=== PATIENT | male | born 1965 | race Caucasian/White ===

== ENCOUNTER → 2019-11-02 12:24 | Outpatient (CLI) | payer OTHER, SELFPAY ==
--- NOTE | ~2019-11-02 | XR_ITS ---
XR foot RT min 3V DATE: 11/02/2019 12:40 INDICATION: Foot injury, pain TECHNIQUE: 4 views COMPARISON: None FINDINGS: Mild posterior calcaneal enthesopathy. No recent fracture or dislocation, periosteal reaction or bone destruction. IMPRESSION: Mild posterior calcaneal enthesopathy No recent fracture or dislocation Reviewed, dictated and finalized at location A.
== END ==
PROVIDERS: PCP Family Medicine; Visit Provider Physician Assistant
DX: S99.929A Unspecified injury of unspecified foot, initial encounter (principal); M77.31 Calcaneal spur, right foot
CPT/HCPCS: 73630

== ENCOUNTER → 2021-04-10 03:00 | Outpatient (CLI) | payer OTHER, SELFPAY ==
[2021-04-11 06:40] LABS: SARS-CoV-2 RNA PCR Negative
== END ==
PROVIDERS: PCP Family Medicine; Visit Provider Physician Assistant
DX: R09.81 Nasal congestion (principal); Z20.822 Contact with and (suspected) exposure to COVID-19
CPT/HCPCS: C9803; U0003; U0005

== ENCOUNTER 2021-11-04 09:02 | Outpatient (CLI) | payer OTHER, SELFPAY ==
--- NOTE | ~2021-11-04 | NM_ITS ---
EXAMINATION: NM sandy stress w perfusion DATE: 11/04/2021 14:19 INDICATION: Dyspnea on exertion. TECHNIQUE: Rest images were obtained following intravenous administration of 10.3 mCi Tc99m tetrofosm in (Myoview). The patient was infused intravenously with Lexiscan (regadenoson). Then, 29.3 mCi Tc99m tetrofosmin (Myoview) was administered intravenously, and stress images were obtained. Data was diallo nstructed into short axis and horizontal and vertical long axis SPECT images. Gated SPECT images were also obtained. COMPARISON: None. FINDINGS: There is no definite reversible or fixed perfusion abnormality to suggest ischemia or infar ction. There is no segmental wall motion abnormality. Left ventricular ejection fraction measures > 70%. IMPRESSION: 1. No definite ischemia or infarct. 2. Normal left ventricular ejection fraction measuring >70%. Reviewed, dictated and finalized at location A.
--- NOTE | 2021-11-04 11:43 | EST_ITS ---
Patient Info Name: Kemal Burton Age: 55 years : 1965 Gender: Male Ht: 70 in Wt: 370 lbs BSA: 2.97 m2 Exam Date: 11/04/2021 11:49 AM Exam Location: [facility] Stress Patient Status: Outpatient Admit Date: 11/04/2021 Staff Ordering Physician: Kyle Degroot MD Attending Provider: Kyle Degroot MD Exam Type: CA stress sandy w NM Study Info A regadenoson stress test was performed. Summary 1. 1. Negative lexiscan stress test for ischemic ST changes by ECG criteria. 2. 2. Stable hemodynamics throughout the test. 3. 3. Nuclear scan to follow and will be reported separately. Please correlate with it. 4. 4. Patient informed of the above results. Protocol: Lexiscan Stress ECG Details Stage: REST Duration (min): 1 min : 18 sec HR (bpm): 60 SBP (mmHg): 119 DBP (mmHg): 76 Stage: REST Duration (min): 8 min : 57 sec HR (bpm): 64 SBP (mmHg): 119 DBP (mmHg): 76 Stage: STAGE 1 Duration (min): 1 min : 0 sec HR (bpm): 86 SBP (mmHg): 125 DBP (mmHg): 93 Stage: RECOVERY Duration (min): 1 min : 0 sec HR (bpm): 79 SBP (mmHg): 125 DBP (mmHg): 93 Stage: RECOVERY Duration (min): 2 min : 0 sec HR (bpm): 74 SBP (mmHg): 125 DBP (mmHg): 93 Stage: RECOVERY Duration (min): 3 min : 0 sec HR (bpm): 73 SBP (mmHg): 116 DBP (mmHg): 60 Stage: RECOVERY Duration (min): 3 min : 15 sec HR (bpm): 73 SBP (mmHg): 116 DBP (mmHg): 60 Rest HR: 64 bpm Peak HR: 87 bpm Rest Sys BP: 119 mmHg Peak Sys BP: 125 mmHg Max Pred HR: 164 bpm % Max Pred HR: 53 % Target HR: 139 bpm Max RPP: 10,875 bpm*mmHg Termination Reason: Completed protocol Cardiac Symptoms: Shortness of breath Total Time: 1 min : 0 sec Rest Hastings BP: 76 mmHg Peak Hastings BP: 93 mmHg Total Dose: 0.4 mg Resting ECG Sinus rhythm, IRBBB. Stress ECG No ST changes. Arrhythmias None. Report Signatures
--- NOTE | 2021-11-04 13:30 | WPDPFTINT ---
PFT Procedure Performed PFT Procedure Performed Plethysmography (Lung Vol) Diffusing Cap (DLCO) Flow Vol Loop Spirometry w/o Bronchodil PFT Interpretation Lung volumes were measured with the body plethysmography method. The diminished expiratory reserve volume is related to obesity. The remaining lung volumes are unremarkable. Spirometry showed borderline FEV1 but normal FEV1 to FVC ratio 72% and normal FVC. No post bronchodilator study was carried out. Lung diffusion capacity is within the normal range. The flow volume loop is unremarkable. The borderline low FEV1 in the face of normal forced vital capacity, FEV1 to FVC ratio, and total lung capacity is indicative of nonspecific pattern. If mild obstructive airway disease is considered likely based on clinical grounds, repeat spirometry with post bronchodilator measurement. impression: Non specific pulmonary function test pattern. Consider repeat spirometry with post bronchodilator measurement, if clinically indicated.
== END 2021-11-04 09:03 | disposition home or self-care (01) ==
PROVIDERS: PCP Family Medicine; Visit Provider Family Medicine
DX: R06.02 Shortness of breath (principal); I51.7 Cardiomegaly; R94.2 Abnormal results of pulmonary function studies
CPT/HCPCS: 78452; 93017; 94375; 94726; 94729; A9502; J2785

== ENCOUNTER 2024-10-23 07:41 | Outpatient (CLI) | payer OTHER, SELFPAY ==
--- OUTSIDE RECORDS SUMMARY | 2024-10-23 07:45 | XMS_ITS | Encounter Summary ---
Author Organization [facility] Address [address] [place] [address] Care Team Providers Care Spacecraft Systems Engineer Name Role Phone Unavailable Primary Care Provider Unavailabl e Encounter Details Date Type Department Care Team (Late st Contact Info) Description 09/26/2023 Lab Requisition [facility] - DermPath Lab [address] [place] [address] Carmelina Bailey MD [address] [facility] [address] [place] [address] Social History Tobacco Use Types Packs/Day Years Used Date Smoking Tobacco: Never Assessed Sex and Gender Information Value Date Recorded Sex Assigned at Not on file Gender Identity Not on file Sexual Orientation Not on file documented as of this encounter Plan of Treatment Not on file documented as of this encounter Procedures Procedure Name Priority Date/Time Associated Diagnosis Comments DERMATOPATHOLOGY Routine 09/26/2023 11:1 4 AM SALES ENGINEER documented in this encounter Results * DERMATOPATHOLOGY (09/26/2023 11:14 AM SALES ENGINEER) Case Report Dermatopathology Report Case: [id number] Authorizing Provider: Carmelina Bailey MD Collected: 09/26/2023 11:14 AM Ordering Location: [facility] D[facility] Lab Received: 09/27/2023 09:22 AM Pathologist: Irina Vazquez MD Specimen: Skin, right scalp 4 1:45 PM SALES ENGINEER DERMATOPATHOLOGY LABORATORY Final Diagnosis Specimen A. SKIN, right scalp: BASAL CELL CARCINOMA, PIGMENTED (C44.41) POST-INFLAMMATORY PIGMENT ALTERATION (L81.9) 4 1:45 PM SALES ENGINEER DERMATOPATHOLOGY LABORATORY Clinical History Partial sample, R/O BCC, R/O MM, R/O SK, Irregular Border, Irregular Color Brown Plaque 1:45 PM [facility] DERMATOPATHOLOGY LABORATORY Gross Description Specimen A: Received is one formalin filled container labeled with the patient's name and designated right scalp. The specimen consists of a shave biopsy measuring 9x5x1 mm. Jar 0. 1:45 PM [facility] DERMATOPATHOLOGY LABORATORY Microscopic Description Specimen A. SKIN, right scalp: There are aggregates of basaloid cells with a high nuclear to cytoplasmic ratio and peripheral palisading. There is abundant melanin. There is also melanin within melanophages around the superficial vascular plexus. 1:45 PM [facility] DERMATOPATHOLOGY LABORATORY Disclaimer An external and internal positive and negative controls are appropriate for the histochemical, immunohistochemical and immunofluorescence stain(s) in this case (if any), except where stated explicitly. The performance characteristics of the stain(s) cited in this report were developed and its performance characteristic determined by the Dermatopathology Laboratory at [facility], directed by Dr. Lucien Cuevas. These tests need not be, and therefore are not, approved by the [place] Food and Drug Administration. The tests are used for clinical purposes. Billing Codes Specimen Charges Stain Charges 02545 1 1:45 PM [facility] DERMATOPATHOLOGY LABORATORY Embedded Images 1:45 PM [facility] DERMATOPATHOLOGY LABORATORY Pathology/Cytolo gy TISSUE SPECIMEN FROM SKIN / Unknown 09/26/2023 11:14 AM SALES ENGINEER 09/27/2023 9:22 AM SALES ENGINEER Carmelina Bailey MD LAB - PATHOLOGY/CYTO LOGY ORDERABLES DERMATOPATHOLOGY LABORATORY [facility] - Department of Dermatology [address], [address] [phone] documented in this encounter Visit Diagnoses Not on filedocumented in this encounter
--- OUTSIDE RECORDS SUMMARY | 2024-10-23 07:45 | XMS_ITS | Clinical Summary ---
Author Organization [facility] Address [address] [place] [address] Care Team Providers Care Equipment Hire Manager Name Role Phone Unavailable Primary Care Provider Unavailabl e Source Comments [facility],non-owned Affiliates and Associated Physician Practices is amultiple site organization consisting of ambulatory clinics and hospital sitesin [place], [place], [place] and [place]. This disclosure is being madepursuant to the Care Everywhere program and may not contain all information available regarding this patient. Last updated 18.[facility] Social History Tobacco Use Types Packs/Day Years Used Date Smoking Tobacco: Never Assessed Sex and Gender Information Value Date Recorded Sex Assigned at Not on file Gender Identity Not on file Sexual Orientation Not on file Plan of Treatment Health Maintenance Due Date Last Done Comments COLOGUARD (AGES 45-75) - COL ON CA SCREENING 1965 COLON MONITORING 1965 COLONOSCOPY - COLON CA SCREENING 1965 CT COLONOGRAPHY - COLON CA SCREENING 1965 Colorectal Cancer Screening 1965 FIT - COLON CA SCREENING 1965 FLEX SIG - COLON CA SCREENING 1965 LIPID TESTING 1965 HIV SCREENING 12/28/1979 HEPATITIS C SCREENING 12/23/1982 DTAP/TDAP/TD VACCINES (1 - Tdap) 12/28/1983 HEPATITIS B VACCINE (1 of 3 - 19+ 3-dose series) 12/28/1983 PNEUMOCOCCAL VACCINE 50+ (1 of 1 - PCV) 2014 ZOSTER VACCINE (1 of 2) 2014 COVID-19 VACCINE ( - 2023-2 5 season) 2024 INFLUENZA VACCINE (#1) 2024 DEPRESSION SCREENING 08/22/2024 HIB VACCINE Aged Out No longer eligi ble based on patient's age to complete this topic HPV VACCINE Aged Out No longer eligi ble based on patient's age to complete this topic MENINGOCOCCAL (Group B) VACCINE Aged Out No longer eligible based on patient's age to complete this topic MENINGOCOCCAL VACCINE Aged Out No aroldo rehan eligible based on patient's age to complete this topic PNEUMOCOCCAL VACCINE Aged Out No long er eligible based on patient's age to complete this topic
--- OUTSIDE RECORDS SUMMARY | 2024-10-23 07:45 | XMS_ITS | Referral Summary ---
Author Organization [facility] Address [address] [place] [address] Care Team Providers Care Electric Locomotive Firer/Fireman Name Role Phone Unavailable Primary Care Provider Unavailabl e Source Comments [facility],non-owned Affiliates and Associated Physician Practices is amultiple site organization consisting of ambulatory clinics and hospital sitesin [place], [place], [place] and [place]. This disclosure is being madepursuant to the Care Everywhere program and may not contain all information available regarding this patient. Last updated 18.[facility] Social History Tobacco Use Types Packs/Day Years Used Date Smoking Tobacco: Never Assessed Sex and Gender Information Value Date Recorded Sex Assigned at Not on file Gender Identity Not on file Sexual Orientation Not on file Plan of Treatment Not on file
--- OUTSIDE RECORDS SUMMARY | 2024-10-23 07:45 | XMS_ITS | Clinical Summary ---
Author Organization [facility] Address [address] [place] [address] Care Team Providers Care Ventilating Equipment Installer Name Role Phone Unavailable Primary Care Provider Unavailabl e Social History Tobacco Use Types Packs/Day Years Used Date Smoking Tobacco: Never Assessed Sex and Gender Information Value Date Recorded Sex Assigned at Not on file Legal Sex Male 9:29 AM DRIVER MEDIC Gender Identity Not on file Sexual Orientation Not on file Plan of Treatment Health Maintenance Due Date Last Done Comments Hepatitis C Virus (HCV) Screening 1965 TdaP Immunization 1965 Hepatitis B Immunization (1 of 3 - 19+ 3-dose series) 12/28/1983 Colonoscopy 2009 Colorectal Cancer Screening 2009 Cologuard 2014 Immunochemical Fecal Occult Blood 2014 Pneumococcal Immunization (5 0+ years) (1 of 1 - PCV) 2014 Zoster Immunization (1 of 2) 2014 PSA Discussion 12/28/2019 Influenza Immunization (#1) 04/22/202407/22, 06/07/2020 SARS-COV-2 Immunization ( season) 2024 11/10/2020, 10/20/2020 Respiratory Syncytial Virus (RSV) Immunization (Adult) (1 - 1-dose 75+ series) 12/28/2039 Meningococcal Immunization (ACWY) Aged Out No longer eligible b ased on patient's age to complete this topic Pneumococcal Immunization Combined Aged Out No longer eligible b ased on patient's age to complete this topic Rotavirus Immunization Aged Out No lo nger eligible based on patient's age to complete this topic Insurance [employer] on file
--- OUTSIDE RECORDS SUMMARY | 2024-10-23 07:45 | XMS_ITS | Patient Health Summary ---
Author Organization [facility] Address [address] [place] [address] Care Team Providers Care Hand Paint Mixer Name Role Phone Unavailable Primary Care Provider Unavailabl e Note from [facility],non-owned Affiliates and Associated Physician Practices is amultiple site organization consisting of ambulatory clinics and hospital sitesin [place], [place], [place] and [place]. This disclosure is being madepursuant to the Care Everywhere program and may not contain all information available regarding this patient. Last updated 18.[facility] Social History Tobacco Use Types Packs/Day Years Used Date Smoking Tobacco: Never Assessed Sex and Gender Information Value Date Recorded Sex Assigned at Not on file Gender Identity Not on file Sexual Orientation Not on file Procedures * DERMATOPATHOLOGY(Performed 09/26/2023) Results * DERMATOPATHOLOGY (09/26/2023 11:14 AM ORTHODONTIC TECHNICIAN ASSISTANT) Case Report Dermatopathology Report Case: [id number] Authorizing Provider: Carmelina Bailey MD Collected: 09/26/2023 11:14 AM Ordering Location: [facility] DermPath Lab Received: 09/27/2023 09:22 AM Pathologist: Irina Vazquez MD Specimen: Skin, right scalp 4 1:45 PM [facility] DERMATOPATHOLOGY LABORATORY Final Diagnosis Specimen A. SKIN, right scalp: BASAL CELL CARCINOMA, PIGMENTED (C44.41) POST-INFLAMMATORY PIGMENT ALTERATION (L81.9) 4 1:45 PM ORTHODONTIC TECHNICIAN ASSISTANT DERMATOPATHOLOGY LABORATORY Clinical History Partial sample, R/O BCC, R/O MM, R/O SK, Irregular Border, Irregular Color Brown Plaque 4 1:45 PM [facility] DERMATOPATHOLOGY LABORATORY Gross Description Specimen A: Received is one formalin filled container labeled with the patient's name and designated right scalp. The specimen consists of a shave biopsy measuring 9x5x1 mm. Jar 0. 4 1:45 PM [facility] DERMATOPATHOLOGY LABORATORY Microscopic Description Specimen A. SKIN, right scalp: There are aggregates of basaloid cells with a high nuclear to cytoplasmic ratio and peripheral palisading. There is abundant melanin. There is also melanin within melanophages around the superficial vascular plexus. 4 1:45 PM [facility] DERMATOPATHOLOGY LABORATORY Disclaimer An external and internal positive and negative controls are appropriate for the histochemical, immunohistochemical and immunofluorescence stain(s) in this case (if any), except where stated explicitly. The performance characteristics of the stain(s) cited in this report were developed and its performance characteristic determined by the Dermatopathology Laboratory at [facility], directed by Dr. Lucien Cuevas. These tests need not be, and therefore are not, approved by the [place] Food and Drug Administration. The tests are used for clinical purposes. Billing Codes Specimen Charges Stain Charges 80917 1 4 1:45 PM [facility] DERMATOPATHOLOGY LABORATORY Embedded Images 4 1:45 PM [facility] DERMATOPATHOLOGY LABORATORY Pathology/Cytolo gy TISSUE SPECIMEN FROM SKIN / Unknown 09/26/2023 11:14 AM ORTHODONTIC TECHNICIAN ASSISTANT 09/27/2023 9:22 AM [facility] Carmelina Bailey MD LAB - PATHOLOGY/CYTO LOGY ORDERABLES DERMATOPATHOLOGY LABORATORY [facility] - Department of Dermatology [address] [phone]
[2024-11-13 15:43] VITALS: BMI 53.6
--- NOTE | 2024-11-13 15:43 | P.SLEEP_ITS ---
Sleep Study Date of Study: 10/23/24 Ordering Provider: Montse Pink DO Interpreting Physician: Montse Pink DO Sleep Study Type: CPAP Titration Height: 1.78 m Weight: 169.644 kg Body Mass Index: 53.6 Neck Circumference (inches): 22 [place]: 8 Reason for Sleep Study Previously diagnosed MIRELAL in 2004. Bought an AutoPAP 4-20 cm H2O out of pocket. Current machine is getting loud. Compliance data shows residual AHI <5 on 4-20 cm H2O. Sleep History The patient is a 58-year-old male with previously diagnosed sleep apnea that a sleep study ordered by his primary care physician to get new equipment. The p atient denies awakening from sleep short of breath. He occasionally awakens at night with heartburn, belching or cough. He denies snoring with CPAP. He denies waking up gasping for air throughout the night. He denies sweating excessively at night. He rarely has heart palpitations or irregular heartbeats during the night. He occasionally falls asleep during the day but never while driving. He denies sleep paralysis, cataplexy and hypnagogic/ hypnopompic hallucinations. He denies having trouble at school or work due to sleepiness. He denies feeling afraid of going to sleep. He denies having nightmares. He occasionally remembers his dreams. He occasionally has thoughts racing through his mind. He rarely feels sad or depressed. He occasionally has anxiety. He occasionally has muscular tension. He rarely notices parts of his body jerk. He denies kicking during the night. He denies having crawling and aching feelings in his legs but rarely has leg pain during the night. He denies grinding his teeth during sleep and denies awakening with morning jaw pain. He denies being bothered by pain during the day and is rarely awakened by pain during the night. He denies waking up feeling stiff in the morning. He denies waking up with sore or achy muscles. He denies waking up with pain in the neck, spine and other joints. He goes to bed at 9:00 p.m. on weekdays and between 9-10 p.m. on the weekends. It takes him 10-15 minutes to fall asleep. He wakes up 1-2 times throughout the night for unknown reasons and is able to fall back asleep quickly. He wakes up between 6-6:30 a.m. on both weekdays and weekends. He typically gets 8-9 hours of sleep per night. He will stay in bed for 5 minutes after waking up in the morning. He currently lives with his . He denies consuming any caffeinated beverages within 2 hours of bedtime. He denies engaging in physical exercise before bedtime. He will watch television before falling asleep. He denies taking naps in afternoon or the evening. He consumes 2 caffeinated beverages per day. He denies tobacco, alcohol and recreational drug use. [facility] Past Medical History Medical History Anxiety Surgical History Surgical History Total knee replacement status Right Sep 2022, left Jun 13 Family History Family History Mother , CVA in 20s No problems noted. Father , [place] in 50s No problems noted. Social History Social History Smoking status: Never smoker Second hand tobacco smoke exposure: No Alcohol intake: current Alcohol use details: Occasional Substance use: never Substance use type: does not use Lack of Transportation: No Lack of Food: Never True Current Housing: I Have Housing Concerned About Future Housing: No Difficulty Paying Gas/Electric Bills: No Difficulty Paying for Meds: No Currently Unemployed: No Education: Bachelor's Degree Difficulty w/ Childcare or Family Care: No Medications Home Medications ?Medication ?Instructions ?Recorded ?Confirmed ?Type ascorbic acid (vitamin C) 250 mg 250 mg PO DAILY 04/04/24 04/04/24 History tablet cholecalciferol (vitamin D3) 25 25 mcg PO DAILY 04/04/24 04/04/24 History mcg (1,000 unit) capsule escitalopram oxalate 20 mg tablet 20 mg PO DAILY #90 tabs 04/04/24 04/04/24 Rx lactobacillus combination no.9 4 4,000 mmu cells PO DAILY 04/04/24 04/04/24 History billion cell capsule (Adult 50 Plus Probiotic) mecobalamin (vitamin B12) 1,000 1,000 mcg PO DAILY 04/04/24 04/04/24 History mcg chewable tablet triamcinolone acetonide 0.1 % 1 applic topical BID #80 grams 04/04/24 04/04/24 Rx topical ointment eszopiclone 3 mg tablet (Lunesta) 3 mg PO QHS #1 tablet 09/17/24 09/17/24 Rx Sleep Procedure A full night CPAP Titration using the [employer] multi-channel system recorded the standard physiologic parameters including EEG, EOG, submentalis EMG, anterior tibialis EMG, EKG, body position, nasal and oral airflow using nasal pressure sensor and thermistor.? Respiratory parameters of chest and abdominal movements were recorded with Respiratory Inductance Plethysmography belts. Oxygen saturation was recorded by pulse oximetry. Video monitoring was also performed. Sleep stages, periodic limb movements, and EEG arousals were scored in 30 second epochs according to the criteria of the AASM Scoring Manual. The Apnea-Hypopnea Index was calculated using CMS guidelines for definition of hypopnea with 4% O2 desaturations while scoring respiratory events. Sleep Architecture The total recording time was 464.1 minutes.? The total sleep time was 351.0 minutes. Sleep latency was 44.5 minutes. REM latency was 199.5 minutes. Sleep efficiency was 75.6%. The patient had 35 awakenings for an awakening index of 6.0. Wake after Sleep Onset time was 69.0 minutes. The patient spent 29.0 minutes, 8.3% of total sleep time in Stage N1. The patient spent 230.0 minutes, 65.5% in Stage N2. The patient spent 0.5 minutes, 0.1% in Stage N3. The patient spent 91.5 minutes, 26.1% in Stage REM. Respiratory Analysis The patient had 15 hypopneas, 2 obstructive apneas and 1 central apnea for an overall Apnea Hypopnea Index of 3.1 events per hour. The REM Apnea Hypopnea Index was 1.3. The NREM Apnea Hypopnea Index was 3.7. The patient had a Central Apnea Hypopnea Index of 0.2. There was no evidence of Sesar-Suazo Respirations. The patient was started on CPAP 5 cm H2O and titrated to CPAP 15 cm H2O due to hypopneas. The patient was able to fall asleep starting on CPAP 5 cm H2O. The patient was able to achieve REM sleep starting on CPAP 13 cm H2O. The patient was able to achieve a residual AHI less than 5 with both NREM and REM sleep in the supine position on the final 3 pressure settings. On CPAP 13 cm H2O, the patient spent 59.5 minutes in NREM and 4.5 minutes in REM with no respiratory events, resulting in an AHI of 0. On CPAP 14 cm H2O, the patient spent 53.5 minutes in NREM and 13.5 minutes in REM with 2 hypopneas, resulting in an AHI of 1.8. On CPAP 15 cm H2O, the patient spent 13 minutes in NREM and 73.5 minutes in REM with 1 central apnea and 2 hypopneas, resulting in an AHI of 2.1. The patient had a sleep efficiency of 93.4% on 13 cm , 100% on 14 cm and 92% on 15 cm H2O. Arousals There were 140 total arousals for an arousal index of 23.9. There were 60 spontaneous arousals for an index of 10.3. ?There were 11 arousals due to respiratory events for an index of 1.9. There were 48 arousals due to periodic limb movements for an index of 8.2.? There were 23 arousals due to isolated limb movements for an index of 3.9. Periodic Limb Movements The patient had 46 isolated limb movements with an index of 7.9. The patient had 134 periodic limb movements with index of 22.9, which is elevated (normal < 15). Patient had a total of 180 limb movements with a total limb movement index of 30.8. Oximetry Data The patient had an average oxygen saturation of 93.4% in sleep with a minimum oxygen saturation of 88.0% and a maximum oxygen saturation of 97.0%. The patient had 18 oxygen desaturations that were 4% or greater resulting in an Oxygen Desaturation Index of 3.1.? The patient spent 0.2 minutes of total sleep time with an oxygen saturation below 88%. Snoring Profile Moderate snoring was present in the beginning of the study. The snoring resolved once the patient was titrated to 13 cm H2O. Cardiac Profile The EKG showed normal sinus rhythm. No arrhythmias or premature beats were seen. The patient had an average pulse rate of 56.7 bpm with a minimum pulse rate of 45.0 bpm and a maximum pulse rate of 74.0 bpm. ? EEG Profile No signs of seizure activity seen. Assessment and Plan Assessment and Plan (1) MIRELLA on CPAP: Code(s): G47.33 - Obstructive sleep apnea (adult) (pediatric); Z99.89 - Dependence on other enabling machines and devices Status: Acute Assessment and Plan: The patient was started on CPAP 5 cm H2O and titrated to CPAP 15 cm H2O due to hypopneas. The patient's sleep apnea resolved on multiple pressure settings. I recommend that the patient be prescribed Resmed CPAP 14 cm H2O, size medium Resmed AirFit P30i nasal pillows, CPAP filters/tubing and heated humidity. This should be used with all episodes of sleep.? Compliance should be reviewed within 31-90 days of starting therapy for usage greater than 4 hours per night greater than 70% of the nights. The patient should be asked about symptoms such as?excessive daytime sleepiness, quality of sleep, decreased nocturia, increased?mental functioning such as memory, mood, and concentration. While the patient did have a significant amount of periodic limb movements present during the study, the frequency dropped significantly once the patient was titrated to the optimal pressure setting. Data The data obtained during this sleep study is adequate for interpretation. Certification This sleep study has been reviewed by a board certified sleep medicine physician.
== END 2024-10-24 07:06 | disposition home or self-care (01) ==
LOC: ANHCSM 07:42
PROVIDERS: PCP Family Medicine; Visit Provider Family Medicine
DX: G47.33 Obstructive sleep apnea (adult) (pediatric) (principal); Z99.89 Dependence on other enabling machines and devices
CPT/HCPCS: 95811

== ENCOUNTER 2025-06-07 00:24 | Day surgery (SDC) | payer OTHER, SELFPAY ==
[2025-05-29 13:33] VITALS: BMI 49.9
--- OUTSIDE RECORDS SUMMARY | 2025-06-07 00:27 | XMS_ITS | Clinical Summary ---
Author Organization [facility] Address [address] [place] [address] Care Team Providers Care Slitting And Shipping Supervisor Name Role Phone Unavailable Primary Care Provider Unavailabl e Source Comments [facility] Offline Media,non-owned Affiliates and Associated Physician Practices is amultiple site organization consisting of ambulatory clinics and hospital sitesin [place], [place], [place] and [place]. This disclosure is being madepursuant to the Care Everywhere program and may not contain all information available regarding this patient. Last updated 18.[facility] Social History Tobacco Use Types Packs/Day Years Used Date Smoking Tobacco: Never Assessed Sex and Gender Information Value Date Recorded Sex Assigned at Not on file Legal Sex Male 11:30 AM RN TRANSITION Gender Identity Not on file Sexual Orientation [...] 12/23/1982 DTAP/TDAP/TD VACCINES (1 - Tdap) 12/28/1983 PNEUMOCOCCAL VACCINE 50+ (1 of 1 - PCV) 2014 ZOSTER VACCINE (1 of 2) 2014 DEPRESSION SCREENING 08/22/2024 COVID-19 VACCINE ( - 2023-2 5 season) 2025 INFLUENZA VACCINE (#1) 2025 Respiratory Syncytial Virus (RSV) Vaccine Pt: or over 60 yrs (1 - 1-dose 75+ series) 12/28/2039 HEPATITIS B VACCINE Aged Out No longe r eligible based on patient's age to complete this topic HIB VACCINE Aged Out No longer eligi ble based on patient's age to complete this topic HPV VACCINE Aged Out No longer eligi ble based on patient's age to complete this topic MENINGOCOCCAL (Group B) VACC INE SHARED DECISION-MAKING Aged Out No longer eligibl e based on patient's age to complete this topic MENINGOCOCCAL GROUPS A/C/Y/W VACCINE Aged Out No longer eligible b ased on patient's age to complete this topic Insurance [employer]
--- OUTSIDE RECORDS SUMMARY | 2025-06-07 00:27 | XMS_ITS | Encounter Summary ---
Author Organization [facility] Address [address] [place] [address] Care Team Providers Care Tire Builder Heavy Service Name Role Phone Unavailable Primary Care Provider Unavailabl e Encounter Details Date Type Department Care Team (Late st Contact Info) Description 09/26/2023 Lab Requisition [facility] - Derm[facility] Lab [address] [place] [address] Carmelina Bailey MD [address] [address] [place] [address] Social History Tobacco Use Types Packs/Day Years Used Date Smoking Tobacco: Never Assessed Sex and Gender Information Value Date Recorded Sex Assigned at Not on file Legal Sex Male 11:30 AM TONGUE BINDER Gender Identity Not on file Sexual Orientation Not on file documented as of this encounter Plan of Treatment Not on file documented as of this encounter Procedures Procedure Name Priority Date/Time Associated Diagnosis Comments DERMATOPATHOLOGY Routine 09/26/2023 11:1 4 AM TONGUE BINDER documented in this encounter Results * DERMATOPATHOLOGY (09/26/2023 11:14 AM TONGUE BINDER) Case Report Dermatopathology Report Case: [id number] Authorizing Provider: Carmelina Bailey MD Collected: 09/26/2023 11:14 AM Ordering Location: [facility] Received: 09/27/2023 09:22 AM Pathologist: Irina Vazquez MD Specimen: Skin, right scalp 1:45 PM TONGUE BINDER DERMATOPATHOLOGY LABORATORY Final Diagnosis Specimen A. SKIN, right scalp: BASAL CELL CARCINOMA, PIGMENTED (C44.41) POST-INFLAMMATORY PIGMENT ALTERATION (L81.9) 1:45 PM TONGUE BINDER DERMATOPATHOLOGY LABORATORY at [address] TONGUE BINDER Clinical History Partial sample, R/O BCC, R/O MM, R/O SK, Irregular Border, Irregular Color Brown Plaque 1:45 PM [facility] DERMATOPATHOLOGY LABORATORY Gross Description Specimen A: Received is one formalin filled container labeled with the patient's name and designated right scalp. The specimen consists of a shave biopsy measuring 9x5x1 mm. Jar 0. 1:45 PM [facility] DERMATOPATHOLOGY LABORATORY Microscopic Description Specimen A. SKIN, right scalp: There are aggregates of basaloid cells with a high nuclear to cytoplasmic ratio and peripheral palisading. There is abundant melanin. There is also melanin within melanophages around the superficial vascular plexus. 4 1:45 PM [facility] DERMATOPATHOLOGY LABORATORY Disclaimer An external and internal positive and negative controls are appropriate for the histochemical, immunohistochemical and immunofluorescence stain(s) in this case (if any), except where stated explicitly. The performance characteristics of the stain(s) cited in this report were developed and its performance characteristic determined by the Dermatopathology Laboratory at [facility], directed by Dr. Lucien Cuevas. These tests need not be, and therefore are not, approved by the [place] Food and Drug Administration. The tests are used for clinical purposes. Billing Codes Specimen Charges Stain Charges 52721 1 4 1:45 PM [facility] DERMATOPATHOLOGY LABORATORY Embedded Images 1:45 PM [facility] DERMATOPATHOLOGY LABORATORY Pathology/Cytolo gy TISSUE SPECIMEN FROM SKIN / Unknown 09/26/2023 11:14 AM TONGUE BINDER 09/27/2023 9:22 AM [facility] us Carmelina Bailey MD LAB - PATHOLOGY/CYTOLOGY ORD ERABLES Final Result DERMATOPATHOLOGY LABORATORY [facility] - Department of Dermatology [address] [phone] documented in this encounter Visit Diagnoses Not on filedocumented in this encounter
--- OUTSIDE RECORDS SUMMARY | 2025-06-07 00:27 | XMS_ITS | Clinical Summary ---
Author Organization Address [address] [place] [address] Care Team Providers Care Ship Harbor Pilot Name Role Phone Unavailable Primary Care Provider Unavailabl e Social History Tobacco Use Types Packs/Day Years Used Date Smoking Tobacco: Never Assessed Sex and Gender Information Value Date Recorded Sex Assigned at Not on file Legal Sex Male 9:29 AM DIRECTOR [facility] Gender Identity Not on file Sexual Orientation Not on file Plan of Treatment Health Maintenance Due Date Last Done Comments Hepatitis C Virus (HCV) Screening 1965 TdaP Immunization 1964 Cologuard 2009 Colonoscopy 2009 Colorectal Cancer Screening 2009 Immunochemical Fecal Occult Blood 2009 Pneumococcal Immunization (5 0+ years) (1 of 1 - PCV) 2014 Zoster Immunization (1 of 2) 2014 Influenza Immunization (#1) 2025 1211/2020, 06/07/2020 SARS-COV-2 Immunization ( season) 2025 11/10/2020, 10/20/2020 Respiratory Syncytial Virus (RSV) Immunization (Adult) (1 - 1-dose 75+ series) 12/28/2039 Hepatitis B Immunization Aged Out No longer eligible based on patient's age to complete this topic Human Papillomavirus (HPV) Immunization Aged Out No longer eligible b ased on patient's age to complete this topic Meningococcal Immunization (ACWY) Aged Out No longer eligible b ased on patient's age to complete this topic Rotavirus Immunization Aged Out No lo nger eligible based on patient's age to complete this topic Insurance [employer] on file
--- OUTSIDE RECORDS SUMMARY | 2025-06-07 00:27 | XMS_ITS | Encounter Summary ---
Author Organization [facility] Address [address] [place] [address] Care Team Providers Care Supply Chain Associate Name Role Phone Maynor Starkey MD Primary Care Provider [phone] Encounter Details Date Type Department Care Team (Late st Contact Info) Description 02/26/2025 MyChart Message Enc [facility] [address] [place] [phone] Maynor Starkey MD [address] [place], [place] [phone] October Social History Tobacco Use Types Packs/Day Years Used Date Smoking Tobacco: Never Smokeless Tobacco: Never Alcohol Use Standard Drinks/Week Comments Not Currently 1.7 (1 standard drink = 0.6 oz p ure alcohol) PHQ-2 Answer Date Recorded Patient Health Questionnaire-2 Score 0 01/29/2025 Sex and Gender Information Value Date Recorded Sex Assigned at Male 01/15/2025 4:23 PM CDT Legal Sex Male 1:37 PM CDT Gender Identity Male 01/15/2025 4:23 PM CDT Sexual Orientation Straight 01/15/2025 4: 23 PM CDT documented as of this encounter Progress Notes * Maynor Starkey MD - 02/26/2025 11:22 AM CDT Can we please arrange for CPAP machiine, already has one and needs a replacement. documented in this encounter Plan of Treatment Upcoming Encounters Date Type Department Care Team (Late st Contact Info) Description 06/19/2025 7:20 AM CDT Laboratory Only [facility] [address] [address] Maynor Starkey MD [address] [place] [phone] 07/30/2025 8:20 AM COLLECTIONS DIRECTOR Office Visit [facility] [address] [phone] Maynor Starkey MD [address] [place] [phone] documented as of this encounter Visit Diagnoses Not on filedocumented in this encounter Care Teams Supply Chain Associate Relationship Specialty Start Date End Date Maynor Starkey MD [address] [place] [phone] PCP - General 01/26/25 documented as of this encounter
--- OUTSIDE RECORDS SUMMARY | 2025-06-07 00:28 | XMS_ITS | Clinical Summary ---
Author Organization [facility] Address Formerly [facility] [address] Care Team Providers Care Shipping Lead Person Name Role Phone Maynor Starkey MD Primary Care Provider [phone] Allergies Active Allergy Reactions Criticality Noted Date Comments Erythromycin Nausea Only Low 02/26/2025 Penicillins Other (see comment) 02/26/2025 Unknown reaction - noted from childhood Tape Rash Low 02/26/2025 Vilazodone Hcl Diarrhea Low 02/26/2025 Medications Probiotic Product (PROBIOTIC 10 ULTRA STRENGTH OR) Take 1 capsule by mouth daily. Active NON FORMULARY Neuro - Mag supplement, one capsule daily Active B Complex Cap capsule Take 1 capsule by mouth daily. Active VITAMIN K, PHYTONADIONE, OR Take 2,600 mcg by mouth daily. Active vitamin D3, cholecalcifero l, 125 mcg capsule Take 1 capsule (125 mcg total) by mouth daily. Active vitamin C (ASCORBIC ACID) 250 MG tablet Take 1 tablet (250 mg total) by mouth daily. Active escitalopram (LEXAPRO) 20 MG tabletIndicati ons:Anxiety TAKE 1 TABLET BY MOUTH EVERY DAY 90 tablet 5 Active tirzepatide (MOUNJARO) 10 MG/0.5ML injectionIndic ations:Diabete s Mellitus Inject 1 Pen into the skin every 7 days. Indications: Diabetes 2 mL 3 5 Active tirzepatide (MOUNJARO) 7.5 MG/0.5ML injectionIndic ations:Diabete s Mellitus Inject 7.5 mg into the skin every 7 days. Indications: Diabetes 2 mL 08 025 Discontinued Active Problems Problem Noted Date Diagnosed Date Obstructive sleep apnea 02/26/2025 Anxiety 01/29/2025 Encounters Date Type Department Care Team Description 05/23/2025 3:00 PM CDT Office Visit [facility] Internal [address] [address] Maynor Starkey MD Follow Up; Obstructive Sleep Apnea ; Obesity (Zepbound f/u) 05/23/2025 Travel 04/23/2025 9:20 AM CDT Office Visit [address] [address] Maynor Starkey MD Follow Up; Obesity (F/u mounjaro) 04/23/2025 Travel 04/10/2025 Results Follow-Up [address] [address] Maynor Starkey MD CBC W/DIFF AUTOMATED 04/10/2025 MyChart Message Enc [address] [address] Maynor Starkey MD Colonoscopy Scheduling 04/09/2025 8:20 AM CDT Office Visit [address] [address] Maynor Starkey MD Blood In Stool (Pt c/o blood in stool intermittent for the last few months, this week he has had blood in stool for almost every BM. ) 04/09/2025 Travel 04/06/2025 MyChart Message Enc [address] [address] Maynor Starkey MD Bleeding from rectum 04/04/[address] [address] Maynor Starkey MD Prior Authorization (Zepbound 7.5 mg / Mounjaro 7.5mg ) 04/02/2025 MyChart Message Enc [facility] Internal [address] [address] Cielo Zendejas, DO Zepbound Prescription 04/01/2025 9:00 AM CDT Office Visit [facility] Internal [address] [address] Maynor Starkey MD Clardy, Emma C, DO Weight Problem (Pt is here today for 1 month f/u for Zepbound. No concerns/questions. States he is ready for the dosage to be moved up to the next amount.) 04/01/2025 Travel 03/13/2025 Results Follow-Up [facility] Internal [address] [address] Maynor Starkey MD COMPREHENSIVE METABOLIC PANEL 03/11/2025 7:20 AM CDT Laboratory Only [facility] Internal [address] [address] Maynor Starkey MD 03/11/2025 Scan [facility] SRVCS Scanned, [facility] 03/11/2025 Travel from Last 3 Months Family History Medical History Relation Comments Stroke Brother Associated with Brain Aneurysm Cancer Father Diabetes Father Heart Disease Father Hypertension Father Heart Disease Mother Valve Replacemen t and Stroke Stroke Mother Depression Sister Relation Status Comments Brother Alive Father Alive Mother Alive Sister Alive Social History Tobacco Use Types Packs/Day Years Used Date Smoking Tobacco: Never Smokeless Tobacco: Never Tobacco Cessation:Counseling Given: Yes Alcohol Use Standard Drinks/Week Comments Not Currently 1.7 (1 standard drink = 0.6 oz p ure alcohol) PHQ-2 Answer Date Recorded Patient Health Questionnaire-2 Score 0 01/29/2025 Sex and Gender Information Value Date Recorded Sex Assigned at Male 01/15/2025 4:23 PM CDT Legal Sex Male 1:37 PM CDT Gender Identity Male 01/15/2025 4:23 PM CDT Sexual Orientation Straight 01/15/2025 4: 23 PM CDT Last Filed Vital Signs Vital Sign Reading Time Taken Comments Blood Pressure 112/60 05/23/2025 3:05 PM CDT Pulse 76 05/23/2025 3:05 PM CDT Temperature 36.6 C (97.9 F) 05/23/2025 3:05 PM CDT Respiratory Rate 18 05/23/2025 3:05 PM CDT Oxygen Saturation 97% 05/23/2025 3:05 PM CDT Inhaled Oxygen Concentration - - Weight 159.8 kg (352 lb 3.2 oz) 05/23/2025 3:05 PM CDT Height 177.8 cm (5' 10) 05/23/2025 3:05 PM CDT Body Mass Index 50.54 05/23/2025 3:05 PM CDT Plan of Treatment Upcoming Encounters Date Type Department Care Team (Late st Contact Info) Description 06/19/2025 7:20 AM CDT Laboratory Only [facility] Internal [address] [address] Maynor Starkey MD [address] [place] [address] 07/30/2025 8:20 AM PICK UP ATTENDANT Office Visit [facility] Internal [address] [address] Maynor Starkey MD [address] [place] [address] Health Maintenance Due Date Last Done Comments Colorectal Cancer Screening Colonoscopy (10 Years) 1964 Hepatitis C 1982 COVID-19 Vaccine (4 - 2024-2 6 season) 2025 08/06/2021, 11/10/2020, 10/20/2020 Influenza Adult (#1) 2025 Annual Physical 01/29/2026 01/29/2025 DTaP, Tdap and Td Vaccines ( 1 - Tdap) 04/01/2026 Postponed from 12/27 (Future Appointment) Pneumococcal Vaccine: 50+ Years (1 of 1 - PCV) 04/01/2026 Postponed from 03/2015 (Patient Refused) RSV Immunization or 60+ Years (1 - Risk 60-74 years 1-dose series) 04/01/2026 Postponed from 03/2025 (Patient Refused) Zoster Vaccines (1 of 2) 04/01/2026 Pos tponed from 2014 (Patient Refused) PHQ-2 (Physician [place]) Completed 01/29/2025 Hepatitis A Vaccines Aged Out No long er eligible based on patient's age to complete this topic Meningococcal B Vaccine Aged Out No l onger eligible based on patient's age to complete this topic Meningococcal Vaccine Aged Out No aroldo rehan eligible based on patient's age to complete this topic RSV Immunizations Under 20 Months Aged Out No longer eligible b ased on patient's age to complete this topic Procedures Procedure Name Priority Date/Time Associated Diagnosis Comments COLLECTION VENOUS BLOOD VENIPUNCTURE Routine 04/09/2025 10:07 AM CDT Blood in stool CBC W/DIFF AUTOMATED Routine 04/09/2025 10:07 AM CDT Blood in stool COLLECTION VENOUS BLOOD VENIPUNCTURE Routine 03/11/2025 7:28 AM CDT Elevated LFTs COMPREHENSIVE METABOLIC PANEL Routine 03/11/2025 7:22 AM CDT Elevated LFTs from Last 3 Months Results * (ABNORMAL) CBC W/DIFF AUTOMATED (04/09/2025 10:07 AM CDT) WBC 6.79 4.00 - 10.80 x10'3/uL 04/09/2025 2:12 PM CDT [facility] RBC 4.54 4.50 - 6.10 x10'6/uL 04/09/2025 2:12 PM CDT [facility] HGB 13.2 13.0 - 18.0 G/DL 04/09/2025 2:12 PM CDT [facility] HCT 40.7 37.0 - 52.0 % 04/09/2025 2:12 PM CDT [facility] MCV 89.6 78.0 - 100.0 FL 04/09/2025 2:12 PM CDT [facility] MCH 29.1 27.0 - 31.0 PG 04/09/2025 2:12 PM CDT [facility] MCHC 32.4(L) 33.0 - 36.0 G/DL 04/09/2025 2:12 PM CDT [facility] RDW 13.4 11.5 - 14.5 % 04/09/2025 2:12 PM CDT [facility] PLT 251 150 - 350 x10'3/uL 04/09/2025 2:12 PM CDT [facility] MPV 9.8 7.4 - 10.4 FL 04/09/2025 2:12 PM CDT [facility] DIFFERENTIAL TYPE AUTOMATED DIFFERENTIAL 04/09/2025 2:13 PM CDT [facility] NEUTROPHILS % 62.9 % 04/09/2025 2:13 PM CDT [facility] LYMPHOCYTES % 24.3 % 04/09/2025 2:13 PM CDT [facility] MONOCYTES % 9.4 % 04/09/2025 2:13 PM CDT [facility] EOSINOPHILS % 2.7 % 04/09/2025 2:13 PM CDT [facility] BASOPHILS % 0.6 % 04/09/2025 2:13 PM CDT [facility] IMMATURE GRANS % 0.1 % 04/09/2025 2:13 PM CDT [facility] ABS. NEUTROPHILS 4.27 1.60 - 8.30 x10'3/uL 04/09/2025 2:13 PM CDT [facility] ABS. LYMPHOCYTES 1.65 0.80 - 4.70 x10'3/uL 04/09/2025 2:13 PM CDT [facility] ABS. MONOCYTES 0.64 0.00 - 1.50 x10'3/uL 04/09/2025 2:13 PM CDT [facility] ABS. EOSINOPHILS 0.18 0.00 - 0.40 x10'3/uL 04/09/2025 2:13 PM CDT [facility] ABS. BASOPHILS 0.04 0.00 - 0.20 x10'3/uL 04/09/2025 2:13 PM CDT [facility] ABS. IMMATURE GRANULOCYTES 0.01 0.00 - 0.03 x10'3/uL 04/09/2025 2:13 PM CDT [facility] 04/09/2025 10:0 7 AM CDT Maynor Starkey MD LABORATORY Final Result [facility] [address] [place] [address], * (ABNORMAL) COMPREHENSIVE METABOLIC PANEL (03/11/2025 7:22 AM CDT) SODIUM S/P/B 139 136 - 145 MMOL/L 03/11/2025 3:03 PM CDT [facility] POTASSIUM S/P/B 4.1 3.5 - 5.1 MMOL/L 03/11/2025 3:03 PM CDT [facility] CHLORIDE S/P/B 102 98 - 107 MMOL/L 03/11/2025 3:03 PM CDT [facility] CO2 26.2 21 - 32 MMOL/L 03/11/2025 3:03 PM CDT [facility] GLUCOSE 99 70 - 99 MG/DL 03/11/2025 3:03 PM CDT [facility] BUN 15 7 - 18 MG/DL 03/11/2025 3:03 PM CDT [facility] CREATININE S/P/B 1.08 0.70 - 1.30 MG/DL 03/11/2025 3:03 PM [facility] CALCIUM S/P/B 9.1 8.4 - 10.5 MG/DL 03/11/2025 3:03 PM [facility] BILIRUBIN TOTAL S/P/B 0.6 0.2 - 1.0 MG/DL 03/11/2025 3:03 PM [facility] ALKALINE PHOSPHATASE S/P/B 86 45 - 115 U/L 03/11/2025 3:03 PM [facility] AST 55(H) 15 - 37 U/L 03/11/2025 3:03 PM [facility] ALT 60 16 - 63 U/L 03/11/2025 3:03 PM [facility] TOTAL PROTEIN S/P/B 7.2 6.4 - 8.2 G/DL 03/11/2025 3:03 PM [facility] ALBUMIN S/P/B 3.6 3.4 - 5.0 G/DL 03/11/2025 3:03 PM [facility] ANION GAP 10.8 5 - 15 MMOL/L 03/11/2025 3:03 PM [facility] Comment:REFERENCE RANGE NOT ESTABLISHED OSMOLALITY (CALC) 289 MOSM/KG 025 3:03 PM [facility] Comment:REFERENCE RANGE NOT ESTABLISHED GFR ESTIMATE 79(L) >90 ML/MIN/1. 73 M2 03/11/2025 3:03 PM [facility] GFR NOTES GFR REFERENCE S: 03/11/2025 3:03 PM [facility] Comment: THE ESTIMATED GFR IS CALCULATED USING THE 2020 CKD-EPI EQUATION. THE FOLLOWING CATEGORIES FOR GRADING RENAL FUNCTION ARE RECOMMENDED BY THE INTERNATIONAL SOCIETY OF NEPHROLOGY (KDIGO 2012 CLINICAL PRACTICE GUIDELINE). G1,NORMAL OR HIGH: >89 ml/min/1.73 m2 G2,MILDLY DECREASED: 60-89 ml/min/1.73 m2 G3A,MILDLY TO MODERATELY DECREASED: 45-59 ml/min/1.73 m2 G3B,MODERATELY TO SEVERELY DECREASED: 30-44 ml/min/1.73 m2 G4,SEVERELY DECREASED: 15-29 ml/min/1.73 m2 G5,KIDNEY FAILURE: <15 ml/min/1.73 m2 03/11/2025 7:22 AM CDT Maynor Starkey MD LABORATORY Final Result [facility] [place] [address] [facility] [place] [address], [place] [phone] from Last 3 Months Insurance [employer] Care Teams Shipping Lead Person Relationship Specialty Start Date End Date Maynor Starkey MD [address] [place] [id number] PCP - General 01/26/25
--- OUTSIDE RECORDS SUMMARY | 2025-06-07 00:28 | XMS_ITS | Encounter Summary ---
Author Organization [facility] Address [address] [place] [address] Care Team Providers Care Solar Energy System Installer Helper Name Role Phone Maynor Starkey MD Primary Care Provider [phone] Reason for Referral * Consultation (Routine) - Authorized Specialty Diagnoses / Procedures Referred By Contac t Referred To Contact GASTROENTEROLOGY Diagnoses Blood in stool Maynor Starkey MD [facility] [place] [address] Phone: tel: fax: [facility] - Gastroenterology [address] [facility] [address] [facility] [address] [place] [address] Phone: tel: fax: Referral ID Status Reason Start Date Expiration Date V isits Requested Visits Authorized [id number] Authorized 04/12/2025 04/12/2026 99 99 Scheduling Instructions [facility] Encounter Details Date Type Department Care Team (Late st Contact Info) Description 04/10/2025 Results Follow-Up [facility] Family & Internal Medicine - [place] [address] [place] [address] Maynor Starkey MD [address] [place], [place] [id number] CBC W/DIFF AUTOMATED Social History Tobacco Use Types Packs/Day Years [...] Progress Notes * Maynor Starkey MD - 04/10/2025 2:57 PM CDT Blood counts are normal. Can we please make sure that GI has come through with an appointment. I have reached out to dr. Gross and his PA. Want to make sure that he has gotten an appointment. documented in this encounter Plan of Treatment Upcoming Encounters Date Type Department Care Team (Late st Contact Info) Description 06/19/2025 7:20 AM CDT Laboratory Only [facility] Family & Internal Medicine [address] [address] Maynor Starkey MD [address] [place] [address] 07/30/2025 8:20 AM GROUNDWATER CONSULTANT Office Visit [facility] Family & Internal [address] [address] Maynor Starkey MD [address] [place] [address] Scheduled Referrals Name Type Priority Associated Diagnoses Orde r Schedule Ambulatory referral to Gastroenterology (OTHER) Referral Routine Blood in stool Ordered: 04/12/2025 documented as of this encounter Visit Diagnoses Diagnosis Blood in stool- Primary documented in this encounter Care Teams Solar Energy System Installer Helper Relationship Specialty Start Date End Date Maynor Starkey MD [address] [place] [address] PCP - General 01/26/25 documented as of this encounter
[2025-06-07 11:11] VITALS: BP 118/77; PULSE 70; RESP 18; TEMP 36.2; O2SAT 97
[2025-06-07] MEDS: LACTATED RINGERS 1,000 ML 150 ML IV CONT (11:19)
--- NOTE | 2025-06-07 12:09 | WPDANESEPPF ---
Anes - Initial Pre Proc Eval Procedure: Operation Date: 06/07/25 12:30 Proposed Procedures p Diagnostic Colonoscopy - Pérez Lo MD Date/Time: 06/07/25 12:09 Surgeon: Pérez Lo MD Pre Op Diagnosis: Hemorrhage of anus and rectum Patient Data Age: 59 Gender: M Height: 1.78 m Weight: 157.1 kg Last Vital Signs Temp 36.2 C L 06/07/25 11:11 Pulse 70 06/07/25 11:11 Resp 18 06/07/25 11:11 BP 118/77 06/07/25 11:11 Pulse Ox 97 06/07/25 11:11 O2 Del Method Room Air 06/07/25 11:11 Allergies Allergy/AdvReac Type Severity Reaction Status Date / Time erythromycin base Allergy Unknown Nausea Verified 06/07/25 11:09 Penicillins Allergy Unknown Takes Verified 06/07/25 11:09 Amoxil/Ampicillin vilazodone (Viibryd) Allergy Unknown diarrhea Verified 06/07/25 11:09 surgical tape AdvReac Swelling Uncoded 05/29/25 13:32 Home Medications ?Medication ?Instructions ?Recorded ?Confirmed ?Type ascorbic acid (vitamin C) 250 mg 250 mg PO DAILY 04/04/24 05/29/25 History tablet cholecalciferol (vitamin D3) 25 25 mcg PO DAILY 04/04/24 05/29/25 History mcg (1,000 unit) capsule escitalopram oxalate 20 mg tablet 20 mg PO DAILY #90 tabs 04/04/24 05/29/25 Rx lactobacillus combination no.9 4 4,000 mmu cells PO DAILY 04/04/24 05/29/25 History billion cell capsule (Adult 50 Plus Probiotic) mecobalamin (vitamin B12) 1,000 1,000 mcg PO DAILY 04/04/24 05/29/25 History mcg chewable tablet eszopiclone 3 mg tablet (Lunesta) 3 mg PO QHS #1 tablet 09/17/24 05/29/25 Rx CPAP Equipment #1 ea 03/13/25 Rx tirzepatide 10 mg/0.5 mL 10 mg subcut WEEKLY 04/23/25 06/07/25 History subcutaneous pen injector (Josie) Patient hx anesthesia problems: none Family hx anesthesia problems: none Results Review: All pre-operative results and documents have been reviewed as part of the pre-operative evaluation. [facility] Past Medical History Medical History (Updated 06/06/25 @ 13:24 by Robinson Babb DO) ANDREI (generalized anxiety disorder) Benign essential HTN MIRELLA on CPAP Anxiety Surgical History Surgical History Total knee replacement status Right Sep 2022, left Jun 13 Family History Family History Mother , CVA in 20s No problems noted. Father , [place] in 50s No problems noted. Social History Social History Smoking status: Never smoker Second hand tobacco smoke exposure: No Alcohol intake: never Alcohol use details: Occasional Substance use: never Substance use type: does not use Lack of Transportation: No Lack of Food: Never True Current Housing: I Have Housing Concerned About Future Housing: No Difficulty Paying Gas/Electric Bills: No Difficulty Paying for Meds: No Currently Unemployed: No Education: Bachelor's Degree Difficulty w/ Childcare or Family Care: No Living arrangements: with family Spiritual care concerns: No Anes - Eval Final PreProcedure Day of Procedure 06/07/25 12:09 Patient weight: morbidly obese Heart: regular rate and rhythm Lungs: clear to auscultation Airway: Mallampati scale class II Neurological: alert and oriented Last oral intake: >/= 8 hours ASA classification: III Emergent: no Anesthetic plan: proceed Anesthesia type and monitoring: general GIVS and standard monitoring Results Review: All pre-operative results and documents have been reviewed as part of the pre-operative evaluation. Informed Consent: The patient's anesthetic plan and its attendant risks and benefits were discussed with the patient/family/POA. Questions were solicited and answers provided to the satisfaction of the patient/family/POA.
--- NOTE | 2025-06-07 12:43 | PM.IMHP ---
H&P: HPI History of Present Illness Date/Time: 06/07/25 12:43 Chief Complaint: Rectal bleeding Narrative: Patient referred for colonoscopy due to intermittent minor amounts of rectal bleeding. Review of Systems Review of Systems: All systems reviewed & are unremarkable except as noted in HPI and below PMFSH Past Medical History Medical History (Updated 06/06/25 @ 13:24 by Robinson Babb DO) ANDREI (generalized anxiety disorder) Benign essential HTN MIRELLA on CPAP Anxiety Surgical History Surgical History Total knee replacement status Right Sep 2022, left Jun 13 Family History Family History Mother , CVA in 20s No problems noted. Father , [place] in 50s No problems noted. Social History Social History Smoking status: Never smoker Second hand tobacco smoke exposure: No Alcohol intake: never Alcohol use details: Occasional Substance use: never Substance use type: does not use Lack of Transportation: No Lack of Food: Never True Current Housing: I Have Housing Concerned About Future Housing: No Difficulty Paying Gas/Electric Bills: No Difficulty Paying for Meds: No Currently Unemployed: No Education: Bachelor's Degree Difficulty w/ Childcare or Family Care: No Living arrangements: with family Spiritual care concerns: No Meds Home Medications and Allergies Home Medications ?Medication ?Instructions ?Recorded ?Confirmed ?Type ascorbic acid (vitamin C) 250 mg 250 mg PO DAILY 04/04/24 05/29/25 History tablet cholecalciferol (vitamin D3) 25 25 mcg PO DAILY 04/04/24 05/29/25 History mcg (1,000 unit) capsule escitalopram oxalate 20 mg tablet 20 mg PO DAILY #90 tabs 04/04/24 05/29/25 Rx lactobacillus combination no.9 4 4,000 mmu cells PO DAILY 04/04/24 05/29/25 History billion cell capsule (Adult 50 Plus Probiotic) mecobalamin (vitamin B12) 1,000 1,000 mcg PO DAILY 04/04/24 05/29/25 History mcg chewable tablet eszopiclone 3 mg tablet (Lunesta) 3 mg PO QHS #1 tablet 09/17/24 05/29/25 Rx CPAP Equipment #1 ea 03/13/25 Rx tirzepatide 10 mg/0.5 mL 10 mg subcut WEEKLY 04/23/25 06/07/25 History subcutaneous pen injector (Mounaparna) Allergies Allergy/AdvReac Type Severity Reaction Status Date / Time erythromycin base Allergy Unknown Nausea Verified 06/07/25 11:09 Penicillins Allergy Unknown Takes Verified 06/07/25 11:09 Amoxil/Ampicillin vilazodone (Viibryd) Allergy Unknown diarrhea Verified 06/07/25 11:09 surgical tape AdvReac Swelling Uncoded 05/29/25 13:32 Vital Signs Vital Signs - 24 hr 06/07/25 11:11 Temperature 97.1 F L Pulse Rate 70 Respiratory Rate 18 Blood Pressure 118/77 Pulse Oximetry 97 Oxygen Delivery Room Air Exam Const: General: cooperative and healthy appearing Resp: Effort & Inspection: normal respiratory effort and able to speak in complete sentences Auscultation: clear to auscultation bilaterally Cardio: Rate: regular rate Rhythm: regular rhythm GI: Inspection: normal to inspection GI Palp: No No hepatosplenomegaly present Auscultation: normal bowel sounds Rectal Exam: deferred Skin: General skin exam: normal color Psych: Appearance: grossly normal Mental Status: mental status grossly normal Assessment and Plan Assessment and plan (1) Bright red rectal bleeding: Code(s): K62.5 - Hemorrhage of anus and rectum Status: Acute
[2025-06-07] MEDS: SIMETHICONE ORAL SUSPENSION 20 MG/0.3 ML 30 ML BOTTLE 0.6 ML IRRIGATION (12:50)
[2025-06-07 13:06] VITALS: BP 148/83; PULSE 65; RESP 16; O2SAT 100
[2025-06-07 13:16] VITALS: BP 128/80; PULSE 62; RESP 16; O2SAT 100
[2025-06-07 13:26] VITALS: BP 140/88; PULSE 66; RESP 16; O2SAT 100
== END 2025-06-07 13:38 | disposition home or self-care (01) ==
PROVIDERS: PCP Internal Medicine; Referring Provider Internal Medicine Gastroenterology; Visit Provider Internal Medicine Gastroenterology
PROC: 0DJD8ZZ Inspection of Lower Intestinal Tract, Via Natural or Artificial Opening Endoscopic (ICD-10-PCS; CPT 45378; principal; 2025-06-07 12:30)
DX: K92.1 Melena (principal); K64.8 Other hemorrhoids
CPT/HCPCS: 45378; J2003; J2704; J7120